=== PATIENT | male | born 1985 | race Two or more races ===

== ENCOUNTER 2019-06-07 19:35 | Emergency (ER) | payer OTHER ==
[~2019-06-07] VITALS: Ht 170.2 cm; Wt 81.6 kg
[2019-06-07] MEDS ORDERED: MUCINEX DM ER1 EAC1 PO (21:17)
[2019-06-07] MEDS ORDERED: OSEL75CA PO (21:17)
[2019-06-07] MEDS ORDERED: KETO10TA2 PO (21:17)
[2019-06-07] MEDS ORDERED: AIRBORNE EFFER1 EACH PO (21:17)
== END 2019-06-07 21:18 | disposition home or self-care (01) ==
LOC: ER 19:35
DX: J11.1 Influenza due to unidentified influenza virus with other respiratory manifestations (principal)